=== PATIENT | male | born 1995 | race Caucasian/White ===

== ENCOUNTER 2023-01-12 12:41 | Emergency (ER) | payer OTHER ==
[~2023-01-12] VITALS: Ht 188 cm; Wt 116.4 kg
[2023-01-12 14:02] LABS: BASO % 0.5 % (0.0-1.0); EOS # 0.2 10^3/uL (0.0-0.5); EOS % 2.8 % (0.0-3.0); HEMATOCRIT 49.1 % (42.0-52.0); HEMOGLOBIN 16.9 g/dl (13.5-17.5); LYMPH # 2.4 10^3/uL (1.5-5.0); MEAN CORPUSCULAR HEMOGLOBIN 30.5 pg (27.0-33.0); MEAN CORPUSCULAR HGB CONC 34.4 g/dl (32.0-36.5); MEAN CORPUSCULAR VOLUME 88.5 fl (80.0-96.0); MONO # 0.7 10^3/uL (0.0-0.8); MONO % 12.9 % (2.0-8.0); NEUTROPHILS # 2.4 10^3/uL (1.5-8.5); NEUTROPHILS % 41.6 % (36.0-66.0); PLATELET COUNT, AUTOMATED 161 10^3/uL (150-450); RED BLOOD COUNT 5.55 10^6/uL (4.30-6.10); WHITE BLOOD COUNT 5.7 10^3/uL (4.0-10.0)
[2023-01-12 14:31] LABS: LIPASE 27 U/L (12-53)
[2023-01-12 14:33] LABS: ALBUMIN 3.5 G/DL (3.2-5.2); ALKALINE PHOSPHATASE 83 U/L (46-116); ALT/SGPT 25 U/L (7.0-40); AST/SGOT 11 U/L (<34); BILIRUBIN,DIRECT 0.1 MG/DL (<0.4); BILIRUBIN,TOTAL 0.7 MG/DL (0.3-1.2); BLOOD UREA NITROGEN 13 MG/DL (9-23); CALCIUM LEVEL 10.1 MG/DL (8.5-10.1); CARBON DIOXIDE LEVEL 28 MMOL/L (20-31); CHLORIDE LEVEL 102 MMOL/L (98-107); CREATININE FOR GFR 0.99 MG/DL (0.70-1.30); GLOMERULAR FILTRATION RATE > 60.0 (>60); GLUCOSE, FASTING 112 MG/DL (60-100); POTASSIUM SERUM 4.1 MMOL/L (3.5-5.1); SODIUM LEVEL 136 MMOL/L (136-145); TOTAL PROTEIN 7.5 G/DL (5.7-8.2)
[2023-01-12] MEDS ORDERED: KETOROLAC 30 MG/ML 1ML VIAL IV ONE (16:20)
[2023-01-12] MEDS ORDERED: NS 1,000 ML IV ONE (16:20)
[2023-01-12] MEDS ORDERED: AUGMENTIN 500MG TAB PO ONE (18:35)
[2023-01-12] MEDS ORDERED: AUGM500T34 PO (18:38)
[2023-01-12 19:00] VITALS: BP 140/83; TEMP 98.7; O2SAT 98
== END 2023-01-12 19:00 | disposition home or self-care (01) ==
LOC: M ED 12:41
DX: R10.9 Unspecified abdominal pain (principal)
CPT/HCPCS: 74177; 80048; 80076; 81001; 83690; 85025; 96374; 99283; J1885

== ENCOUNTER → 2023-01-13 | Outpatient (CLI) | payer OTHER ==
[~2023-01-13] MED LIST: AUGM500T34 PO
== END ==
LOC: M CARPUL 13:54
PROVIDERS: ATTEND Physician Assistant
DX: R07.9 Chest pain, unspecified (principal)

== ENCOUNTER → 2023-02-08 | Outpatient (CLI) | payer OTHER ==
[~2023-02-08] MED LIST changes: +METHACHOLINE KIT INH ONE
== END ==
LOC: M CARPUL 14:03
PROVIDERS: ATTEND Physician Assistant
DX: R07.9 Chest pain, unspecified (principal)
CPT/HCPCS: 94070; J7674

== ENCOUNTER 2023-05-31 12:29 | Emergency (ER) | payer OTHER ==
[~2023-05-31] VITALS: Ht 157.5 cm; Wt 126.8 kg
[~2023-05-31 12:29] MED LIST changes: -METHACHOLINE KIT INH ONE
[2023-05-31 14:31] LABS: RSV AMPLIFICATION NEGATIVE (NEGATIVE)
[2023-05-31 17:40] VITALS: BP 142/84; TEMP 98.1; O2SAT 96
== END 2023-05-31 17:42 | disposition home or self-care (01) ==
LOC: M ED 12:29
DX: R19.7 Diarrhea, unspecified (principal); Z20.822 Contact with and (suspected) exposure to COVID-19

== ENCOUNTER → 2024-04-11 | Outpatient (REF) | payer OTHER ==
[2024-04-11 11:01] LABS: SEMEN APPEARANCE OPAQUE (OPAQUE); SEMEN VISCOSITY LIQUID (LIQUID); SEMEN VOLUME 3.2 ml (2.0-5.0); SPERM CONCENTRATION 59.7 M/ml (>=15.0); WBC CONCENTRATION <=1 M/ml (<=1 M/ml)
== END ==
LOC: M LAB REF 10:49
PROVIDERS: ATTEND Physician Assistant
DX: N46.9 Male infertility, unspecified (principal)

== ENCOUNTER → 2024-05-31 | Outpatient (CLI) | payer OTHER | LOC: M OUTALCOH 10:16 | PROVIDERS: ATTEND Psychiatry & Neurology Psychiatry | DX: F10.10 Alcohol abuse, uncomplicated (principal); Z72.0 Tobacco use ==

== ENCOUNTER 2024-06-26 10:05 | Outpatient (RCR) | payer OTHER | END 2024-07-04 | LOC: M OUTALCOH 10:05 | PROVIDERS: ATTEND Psychiatry & Neurology Psychiatry | DX: F10.10 Alcohol abuse, uncomplicated (principal); Z72.0 Tobacco use ==

== ENCOUNTER 2024-08-03 16:00 | Outpatient (RCR) | payer OTHER | END 2024-08-04 | LOC: M OUTALCOH 16:00 | PROVIDERS: ATTEND Psychiatry & Neurology Psychiatry | DX: F10.10 Alcohol abuse, uncomplicated (principal); Z72.0 Tobacco use ==

== ENCOUNTER 2024-08-24 16:00 | Outpatient (RCR) | payer OTHER | END 2024-09-01 | LOC: M OUTALCOH 16:00 | PROVIDERS: ATTEND Psychiatry & Neurology Psychiatry | DX: F10.10 Alcohol abuse, uncomplicated (principal); Z72.0 Tobacco use ==

== ENCOUNTER 2024-09-13 09:00 | Outpatient (RCR) | payer OTHER | END 2024-10-02 | LOC: M OUTALCOH 09:00 | PROVIDERS: ATTEND Psychiatry & Neurology Psychiatry | DX: F10.10 Alcohol abuse, uncomplicated (principal); Z72.0 Tobacco use ==